=== PATIENT | male | born 1960 | race Caucasian/White ===

== ENCOUNTER 2021-04-08 14:31 | Emergency (ER) | payer MEDICARE, OTHER | END 2021-04-08 17:25 | disposition home or self-care (01) | LOC: ER1 14:31 | DX: R10.11 Right upper quadrant pain (principal); R19.7 Diarrhea, unspecified; I10 Essential (primary) hypertension; F17.210 Nicotine dependence, cigarettes, uncomplicated | CPT/HCPCS: 99283 ==

== ENCOUNTER 2021-04-12 20:34 | Inpatient (IN) | payer MEDICARE, OTHER ==
[~2021-04-12] VITALS: Ht 162.6 cm; Wt 68.0 kg
[2021-04-12 21:39] LABS: HEMOGLOBIN 10.1 gm/dl (14.0-17.5); RED BLOOD COUNT 3.49 M/UL (4.20-5.50); WHITE BLOOD COUNT 19.3 K/UL (4.5-11.0)
[2021-04-12 22:11] LABS: BUN/CREATININE RATIO 14 (0-10)
[2021-04-13 13:45] LABS: HEMOGLOBIN 9.6 gm/dl (14.0-17.5); RED BLOOD COUNT 3.32 M/UL (4.20-5.50); WHITE BLOOD COUNT 16.7 K/UL (4.5-11.0)
[2021-04-13] MEDS ORDERED: AMLODIPINE BESY10 MG PO (13:51)
[2021-04-13] MEDS ORDERED: METOPROLOL SUCC25 MG PO (13:52)
[2021-04-13] MEDS ORDERED: FUROSEMIDE20 MG PO (13:52)
[2021-04-13] MEDS ORDERED: PROAIR DIGIHAL90 MCG PO (13:54)
[2021-04-13] MEDS ORDERED: ATORVASTATIN CA40 MG PO (13:57)
[2021-04-13] MEDS ORDERED: ASPIRIN81 MG PO (14:01)
[2021-04-13] MEDS ORDERED: ENTRESTO 24 MG1 EACH PO (14:03)
[2021-04-13 14:19] LABS: BUN/CREATININE RATIO 11 (0-10)
[2021-04-14 05:02] LABS: HEMOGLOBIN 9.5 gm/dl (14.0-17.5); RED BLOOD COUNT 3.31 M/UL (4.20-5.50); WHITE BLOOD COUNT 17.4 K/UL (4.5-11.0)
[2021-04-14 05:15] LABS: BUN/CREATININE RATIO 10 (0-10)
[2021-04-14 08:14] LABS: CEA 2.3 ng/mL (0.0-4.7)
[2021-04-15 04:22] LABS: HEMOGLOBIN 9.6 gm/dl (14.0-17.5); RED BLOOD COUNT 3.31 M/UL (4.20-5.50); WHITE BLOOD COUNT 18.2 K/UL (4.5-11.0)
[2021-04-15 04:42] LABS: BUN/CREATININE RATIO 10 (0-10)
[2021-04-17 05:11] LABS: HEMOGLOBIN 10.5 gm/dl (14.0-17.5)
[2021-04-17 05:16] LABS: RED BLOOD COUNT 3.77 M/UL (4.20-5.50); WHITE BLOOD COUNT 26.8 K/UL (4.5-11.0)
[2021-04-17 05:26] LABS: BUN/CREATININE RATIO 10 (0-10)
[2021-04-18 04:55] LABS: HEMOGLOBIN 10.9 gm/dl (14.0-17.5); RED BLOOD COUNT 3.79 M/UL (4.20-5.50)
[2021-04-18 05:13] LABS: BUN/CREATININE RATIO 11 (0-10)
[2021-04-18] MEDS ORDERED: PERCOCET 5/325 T1 EA PO (09:21)
[2021-04-18] MEDS ORDERED: ENDOCET 5-3251 EACH PO (11:27)
--- NOTE | 2021-04-18 13:36 | NUR ---
1315: PER PATIENT REQUEST, RN NOTIFIED DR SIN FOR POSSIBLE DISCHARGE HOME WITHOUT SEEING PATINET, SINCE DR ALFREDO HAD ALREADY COMPLETED DISCHARGE. DR SIN REQUESTS TO SEE THE PATIENT PRIOR TO DISCHARGE. RN NOTIFIED PATIENT AND OF THIS.
== END 2021-04-18 15:04 | disposition home or self-care (01) | DRG 374 ==
LOC: ER1 20:34 → CDU 04-13 13:32 → MED SURG 4 04-13 13:32
PROVIDERS: Physician Assistant; Physician Assistant Medical; Surgery; ADMIT Internal Medicine Infectious Disease
PROC: 0DJD8ZZ Inspection of Lower Intestinal Tract, Via Natural or Artificial Opening Endoscopic (ICD-10-PCS; principal; 2021-04-14 08:45)
DX: C18.4 Malignant neoplasm of transverse colon (principal); E43 Unspecified severe protein-calorie malnutrition; C78.7 Secondary malignant neoplasm of liver and intrahepatic bile duct; C78.89 Secondary malignant neoplasm of other digestive organs; E87.1 Hypo-osmolality and hyponatremia; F17.210 Nicotine dependence, cigarettes, uncomplicated; F12.90 Cannabis use, unspecified, uncomplicated; D63.0 Anemia in neoplastic disease; I50.9 Heart failure, unspecified; I11.0 Hypertensive heart disease with heart failure; K75.9 Inflammatory liver disease, unspecified; F10.10 Alcohol abuse, uncomplicated; D69.6 Thrombocytopenia, unspecified; T38.0X5A Adverse effect of glucocorticoids and synthetic analogues, initial encounter; K27.9 Peptic ulcer, site unspecified, unspecified as acute or chronic, without hemorrhage or perforation; D50.9 Iron deficiency anemia, unspecified; Z20.822 Contact with and (suspected) exposure to COVID-19; Z82.49 Family history of ischemic heart disease and other diseases of the circulatory system; Z90.49 Acquired absence of other specified parts of digestive tract; Z98.890 Other specified postprocedural states; Z79.82 Long term (current) use of aspirin; Z79.899 Other long term (current) drug therapy; Z68.25 Body mass index [BMI] 25.0-25.9, adult
CPT/HCPCS: 36415; 71250; 80048; 80053; 81001; 82378; 82550; 82607; 82728; 82746; 83540; 83550; 83605; 83690; 83735; 83880; 84443; 85025; 85027; 85610; 86301; 86850; 86900; 86901; 87040; 88341; 88342; 94640; 94664; 94760; 96365; 96366; 96367; 96375; 99285; A6212; C9113; J1170; J1650; J2001; J2270; J2405; J2543; J2704; J2710; J3010; J3370; J7120; Q9967; U0002

== ENCOUNTER 2021-04-21 09:18 | Inpatient (IN) | payer MEDICARE, OTHER ==
[~2021-04-21] VITALS: Ht 162.6 cm; Wt 68.0 kg
[~2021-04-21 09:18] MED LIST: AMLODIPINE BESY10 MG PO; ASPIRIN81 MG PO; ATORVASTATIN CA40 MG PO; ENDOCET 5-3251 EACH PO; ENTRESTO 24 MG1 EACH PO; FUROSEMIDE20 MG PO; METOPROLOL SUCC25 MG PO; PERCOCET 5/325 T1 EA PO; PROAIR DIGIHAL90 MCG PO
[2021-04-21 09:47] LABS: HEMOGLOBIN 11.3 gm/dl (14.0-17.5); RED BLOOD COUNT 3.92 M/UL (4.20-5.50); WHITE BLOOD COUNT 20.9 K/UL (4.5-11.0)
[2021-04-21 10:11] LABS: BUN/CREATININE RATIO 18 (0-10)
[2021-04-21] MEDS ORDERED: PERCOCET 5-3251 EACH PO (11:40)
[2021-04-21] MEDS ORDERED: PROTONIX 40 MG40 M1 PO (14:24)
[2021-04-22 06:26] LABS: HEMOGLOBIN 10.1 gm/dl (14.0-17.5); RED BLOOD COUNT 3.58 M/UL (4.20-5.50); WHITE BLOOD COUNT 16.3 K/UL (4.5-11.0)
[2021-04-22 06:57] LABS: BUN/CREATININE RATIO 15 (0-10)
--- NOTE | 2021-04-22 22:50 | NUR ---
NOTIFIED BY [email or web address] THAT THE PATIENT STATED HE STOOD UP AND HIS NGT "FELL OUT". PATIENT FOUND IN ROOM HOLDING NGT. NO C/O PAIN OR NAUSEA. PATIENT STATED HE DID NOT WANT ANOTHER NGT PLACED. I INFORMED THE PATIENT THAT HE WAS NOT ALLOWED TO TAKE ANYTHING BY MOUTH EXCEPT SMALL AMT ICE CHIPS. AT THIS TIME, DR VOGT CALLED TO SPEAK WITH ME ABOUT THIS PARTICULAR PATIENT. I INFORMED HER OF THE DC'ED NGT AND HIS REFUSAL TO HAVE ANOTHER PLACED. SHE STATED THIS WAS OK, BUT STRESSED THAT HE WAS NOT ALLOWED TO TAKE A LARGE AMOUNT OF FLUIDS. PATIENT EDUCATED WITH GOOD UNDERSTANDING NOTED.
[2021-04-23 04:46] LABS: HEMOGLOBIN 9.8 gm/dl (14.0-17.5); RED BLOOD COUNT 3.46 M/UL (4.20-5.50); WHITE BLOOD COUNT 16.5 K/UL (4.5-11.0)
[2021-04-23 05:04] LABS: BUN/CREATININE RATIO 12 (0-10)
[2021-04-23 07:40] LABS: RED BLOOD COUNT 3.5 M/UL (4.20-5.50); WHITE BLOOD COUNT 15.6 K/UL (4.5-11.0)
[2021-04-24 05:25] LABS: BUN/CREATININE RATIO 9 (0-10)
[2021-04-24 08:34] LABS: HEMOGLOBIN 10.4 gm/dl (14.0-17.5); RED BLOOD COUNT 3.64 M/UL (4.20-5.50); WHITE BLOOD COUNT 15.7 K/UL (4.5-11.0)
[2021-04-25 03:58] LABS: HEMOGLOBIN 10.3 gm/dl (14.0-17.5); RED BLOOD COUNT 3.65 M/UL (4.20-5.50); WHITE BLOOD COUNT 16.5 K/UL (4.5-11.0)
[2021-04-25 04:17] LABS: BUN/CREATININE RATIO 8 (0-10)
--- NOTE | 2021-04-25 14:26 | NUR ---
reported to dr. mariee patient request for diet change, increase heart rate and telemetry reading. she acknowledged
--- NOTE | 2021-04-25 17:54 | NUR ---
received call from dr fay r/t kub result and to notify surgeron. unable to contact dr. martins, left message. informed patient to cont to be on clear liquid.
[2021-04-26 04:45] LABS: HEMOGLOBIN 10.2 gm/dl (14.0-17.5); RED BLOOD COUNT 3.61 M/UL (4.20-5.50); WHITE BLOOD COUNT 15.4 K/UL (4.5-11.0)
[2021-04-26 05:25] LABS: BUN/CREATININE RATIO 7 (0-10)
[2021-04-27 03:50] LABS: HEMOGLOBIN 10.8 gm/dl (14.0-17.5); RED BLOOD COUNT 3.79 M/UL (4.20-5.50); WHITE BLOOD COUNT 18.3 K/UL (4.5-11.0)
[2021-04-27 04:09] LABS: BUN/CREATININE RATIO 7 (0-10)
[2021-04-27 13:31] LABS: HEMOGLOBIN 10.9 gm/dl (14.0-17.5); RED BLOOD COUNT 3.88 M/UL (4.20-5.50); WHITE BLOOD COUNT 16.6 K/UL (4.5-11.0)
--- NOTE | 2021-04-27 16:25 | NUR ---
reported by gretel alfaro to dr. webster patient episode of jay approx 10 sec per telemetry report. was told to call and notify dr. jackson.
[2021-04-28 07:39] LABS: HEMOGLOBIN 11.6 gm/dl (14.0-17.5); RED BLOOD COUNT 4.08 M/UL (4.20-5.50); WHITE BLOOD COUNT 17.9 K/UL (4.5-11.0)
[2021-04-28 08:09] LABS: BUN/CREATININE RATIO 6 (0-10)
[2021-04-28] MEDS ORDERED: LOPRESSOR 25 MG25 MG PO (15:35)
[2021-04-28] MEDS ORDERED: PROTONIX 40 MG40 M1 PO (15:37)
[2021-04-28] MEDS ORDERED: MI-ACID80 MG PO (15:37)
[2021-04-28] MEDS ORDERED: METOPROLOL SUCC25 MG PO (16:57)
[2021-04-28] MEDS ORDERED: PERCOCET 7.5-31 EACH PO (17:47)
== END 2021-04-28 15:37 | disposition home or self-care (01) | DRG 389 ==
LOC: ER1 09:18 → M/S 12:38 → CDU 12:38 → M/S 15:36
PROVIDERS: Internal Medicine; Physician Assistant; Physician Assistant Medical; ADMIT Internal Medicine
PROC: B24BZZZ Ultrasonography of Heart with Aorta (ICD-10-PCS; principal; 2021-04-26)
DX: K56.7 Ileus, unspecified (principal); C18.9 Malignant neoplasm of colon, unspecified; C78.7 Secondary malignant neoplasm of liver and intrahepatic bile duct; E87.1 Hypo-osmolality and hyponatremia; R18.8 Other ascites; N17.9 Acute kidney failure, unspecified; I47.1 Supraventricular tachycardia; K56.609 Unspecified intestinal obstruction, unspecified as to partial versus complete obstruction; Z20.822 Contact with and (suspected) exposure to COVID-19; D64.9 Anemia, unspecified; E78.5 Hyperlipidemia, unspecified; K21.9 Gastro-esophageal reflux disease without esophagitis; F19.11 Other psychoactive substance abuse, in remission; I11.0 Hypertensive heart disease with heart failure; I50.9 Heart failure, unspecified; F12.90 Cannabis use, unspecified, uncomplicated; E87.6 Hypokalemia; I08.3 Combined rheumatic disorders of mitral, aortic and tricuspid valves; I27.20 Pulmonary hypertension, unspecified; Z87.891 Personal history of nicotine dependence; Z90.49 Acquired absence of other specified parts of digestive tract; Z82.49 Family history of ischemic heart disease and other diseases of the circulatory system; Z74.01 Bed confinement status; Z79.82 Long term (current) use of aspirin
CPT/HCPCS: ECHO; 36415; 71045; 74019; 80048; 80053; 80076; 80202; 81001; 82550; 82553; 83605; 83690; 83735; 83874; 84484; 85025; 85027; 87040; 93005; 93270; 93306; 94664; 94760; 96374; 96375; 99285; C9113; J1170; J1650; J2405; J2543; J3370; J3475; J7030; J7050; J7070; Q9967; U0002

== ENCOUNTER → 2021-11-21 | Outpatient (CLI) | payer MEDICARE, OTHER ==
[~2021-11-21] MED LIST changes: +LOPRESSOR 25 MG25 MG PO; +MI-ACID80 MG PO; +PERCOCET 5-3251 EACH PO; +PERCOCET 7.5-31 EACH PO; +PROTONIX 40 MG40 M1 PO
== END ==
LOC: CT 13:34
DX: C18.4 Malignant neoplasm of transverse colon (principal); K76.9 Liver disease, unspecified; Z98.890 Other specified postprocedural states
CPT/HCPCS: 36415; 71260; 82565; Q9967